=== PATIENT | male | born 1975 | race Caucasian/White ===

== ENCOUNTER 2019-01-18 09:46 | Observation (INO) ==
[2019-01-18] MEDS ORDERED: ASPIRIN CHEW 324 MG PO STA (10:03)
[2019-01-18 10:25] LABS: Basophils # (auto) 0.03 K/uL (0-0.2); Basophils % (auto) 0.3 %; Eosinophils # (auto) 0.09 K/uL (0-0.5); Hematocrit (blood only) 40.5 % (42-52); Hemoglobin 13.1 g/dL (14.0-18.0); Immature Granulocytes # (auto) 0.03 K/uL (0.00-0.02); Immature Granulocytes % (auto) 0.3 %; Lymphocytes # (auto) 2.07 K/uL (1.2-3.4); Mean Corpuscular Hgb Conc 32.3 g/dL (32-36); Mean Corpuscular Volume 75.6 fL (80-100); Mean Platelet Volume 10.6 fL (7.4-10.4); Monocytes # (auto) 0.37 K/uL (0.11-0.59); Monocytes % (auto) 3.9 %; Neutrophils # (auto) 6.83 K/uL (1.4-6.5); Neutrophils % (auto) 72.5 %; Platelet Count 259 K/uL (130-400); RDW Coefficient of Variation 15.8 % (11.5-14.5); RDW Standard Deviation 43.2 fL (36.4-46.3); Red Blood Count 5.36 M/uL (4.7-6.1); White Blood Count 9.42 K/uL (4.8-10.8)
--- NOTE | 2019-01-18 10:26 | Emergency Department Note ---
Entered by Lissett Pulido acting as a scribe for Moe Harris DO History of Present Illness General Chief complaint: Chest Pain Stated complaint: CHEST PAINS - SOB - DIZZY - LIGHT HEADED Source: patient Mode of arrival: ambulatory Limitations: no limitations History of Present Illness Onset (ago): hour(s) (0800) Location: chest (left ) Radiation: extremity (left upper) Severity: similar to prior episodes (CHF) Maximum Pain Intensity: 3 Quality: + aching and + dull Relieved By: + none Exacerbated By: + none Associated symptoms: + chest pain, + diaphoresis and + other (The patient denies pleurisy. The patient denies abdominal pain, back pain, swelling in the leg, and pain in the legs.); no shortness of breath Treatments prior to arrival: none The patient is a 43-year-old male who presented to the emergency department for an evaluation of chest discomfort. The patient describes dull ache which she notices over the left side of the chest. He states it does radiate to the left upper extremity. The pain is still present. The pain started at approximately 8 AM this morning. It occurred while he was riding in a car. He also notices diaphoresis. He denies having any shortness of breath or pleurisy. He is noticed no swelling in the legs or pain in the legs. The patient states that he has had similar symptoms in the past when he had CHF. He states that he does not have a history of stents in his coronary arteries but also states he is never had a cardiac catheterization. He took no pain medications for this. He took no aspirin. He notices no interventions that make this worse or any interventions that make this better. The patient states that he did have a stress test 7 years ago. He denies having any abdominal pain or back pain. Home Medications Home Medications Medication Instructions Recorded Confirmed Type amlodipine 5 mg PO QAM 01/18/19 01/18/19 History empagliflozin [Jardiance] 10 mg PO QAM 01/18/19 01/18/19 History fenofibrate micronized 134 mg PO QAM 01/18/19 01/18/19 History furosemide [Lasix] 60 mg PO QAM 01/18/19 01/18/19 History insulin glargine 45 unit SUBCUT DAILY 01/18/19 01/18/19 History lisinopril 20 mg PO BID 01/18/19 01/18/19 History metoprolol succinate 50 mg PO DAILY 01/18/19 01/18/19 History omega 5-ukc-sfi-fish oil [[place]-3] 3 cap PO BID 01/18/19 01/18/19 History semaglutide [Ozempic] 0.5 mg SUBCUT WK 01/18/19 01/18/19 History sildenafil [Viagra] 100 mg PO DAILY PRN 01/18/19 01/18/19 History simvastatin [Zocor] 10 mg PO QAM 01/18/19 01/18/19 History spironolactone 25 mg PO QAM 01/18/19 01/18/19 History Allergies Allergy/AdvReac Type Severity Reaction Status Date / Time levofloxacin [From Levaquin] AdvReac Severe shortness Unverified 01/18/19 10:45 of breath/whole body swells Past Med/Surg History Medical History CHF (congestive heart failure) No pertinent family history Surgical History No pertinent past surgical history Family History Other No pertinent family history Social History Preferred Language: [place] Communication Ability: Effective Visual Impairment: No Limitations Hearing Ability: Normal 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 and A total of 10 systems reviewed and were otherwise negative Physical Exam Vital Signs Vital Signs - 24 hr 01/18/19 09:51 01/18/19 10:00 01/18/19 10:20 Temperature 36.6 C Temperature Source Oral Sepsis Recent Fever Within 48 Hours No Sepsis New/Unexplained Change in Mental Status No Sepsis Action Taken by Nursing No Action Required Pulse Rate 105 H 100 H Pulse Rate from SpO2 Sensor 101 H Respiratory Rate 26 H 21 Blood Pressure 130/72 163/95 H Blood Pressure Mean 91 117 Pulse Oximetry 100 99 97 Oxygen Delivery Method Room Air Room Air 01/18/19 10:57 01/18/19 11:01 01/18/19 11:31 Temperature Temperature Source Sepsis Recent Fever Within 48 Hours Sepsis New/Unexplained Change in Mental Status Sepsis Action Taken by Nursing Pulse Rate 102 H 101 H 109 H Pulse Rate from SpO2 Sensor 103 H 99 H Respiratory Rate 16 16 14 Blood Pressure 131/83 126/76 149/81 H Blood Pressure Mean 99 92 103 Pulse Oximetry 99 98 98 Oxygen Delivery Method Room Air 01/18/19 12:01 01/18/19 12:31 01/18/19 13:01 Temperature Temperature Source Sepsis Recent Fever Within 48 Hours Sepsis New/Unexplained Change in Mental Status Sepsis Action Taken by Nursing Pulse Rate 117 H 110 H 113 H Pulse Rate from SpO2 Sensor Respiratory Rate 13 15 13 Blood Pressure 147/85 H 136/88 136/84 Blood Pressure Mean 105 104 101 Pulse Oximetry 100 98 97 Oxygen Delivery Method Room Air Room Air Room Air 01/18/19 13:31 01/18/19 14:01 01/18/19 14:31 Temperature Temperature Source Sepsis Recent Fever Within 48 Hours Sepsis New/Unexplained Change in Mental Status Sepsis Action Taken by Nursing Pulse Rate 107 H 115 H 123 H Pulse Rate from SpO2 Sensor Respiratory Rate 23 12 11 L Blood Pressure 122/82 133/82 139/88 Blood Pressure Mean 95 99 105 Pulse Oximetry 98 99 98 Oxygen Delivery Method Room Air Room Air Room Air 01/18/19 15:01 Temperature Temperature Source Sepsis Recent Fever Within 48 Hours Sepsis New/Unexplained Change in Mental Status Sepsis Action Taken by Nursing Pulse Rate 116 H Pulse Rate from SpO2 Sensor Respiratory Rate 12 Blood Pressure 127/79 Blood Pressure Mean 95 Pulse Oximetry 97 Oxygen Delivery Method Room Air GENERAL: Patient is awake, alert, and in no acute distress.Patient is resting comfortably and showing no signs of anxiety EYES: The conjunctivae are clear. The pupils are round and reactive. EARS, NOSE, MOUTH AND THROAT: The nose is without any evidence of any deformity. Mucous membranes are moist.Tongue is midline NECK: The neck is nontender and supple. RESPIRATORY: Normal respiratory effort is noted. There is no evidence of wheezing rhonchi or rales to auscultation. CARDIOVASCULAR: Regular rate and rhythm noted. There no murmurs rubs or gallops normal S1 normal S2 GASTROINTESTINAL: The abdomen is soft. Bowel sounds are present in all quadrants. Abdomen is nontender. MUSCULOSKELETAL/EXTREMITIES: There is no evidence of gross deformity. Full range of motion is noted in the hips and shoulders. SKIN: There is no obvious evidence of any rash. There are no petechiae, pallor or cyanosis noted. NEUROLOGIC: Patient is awake alert and oriented x3. Course 0951: Past medical records reviewed. The patient was evaluated in room A03. A complete history and physical examination was performed. 1200: I have re-evaluated the patient. He states that he is not feeling better. 1430: The patient has a heart score of 4. Callout to hospitalist. 1436: I reviewed the patient's case with Edda Prince PA-C Hospitalist - [facility]. She will evaluate the patient for further management. Administered Medications Discontinued Medications Aspirin (Aspirin) 324 mg PO NOW STA Stop: 01/18/19 10:04 Last Admin: 01/18/19 10:09 Dose: 324 mg Documented by: [id number] Insulin Glargine (Lantus Per Unit) 45 units SC NOW ONE Stop: 01/18/19 16:01 Last Admin: 01/18/19 16:11 Dose: 45 units Documented by: [id number] Cosigned by: [id number] Metoprolol Succinate (Toprol Xl) 50 mg PO NOW STA Stop: 01/18/19 15:45 Last Admin: 01/18/19 15:56 Dose: 50 mg Documented by: [id number] Medical Decision Making Differential Diagnosis Differential diagnoses: Acute coronary syndrome, myocardial infarction, pericarditis, pulmonary embolus, aortic dissection, pneumonia, pneumothorax, musculoskeletal, shingles, esophageal. Medical Records Attestation: I reviewed the patient's medical records. Home Medications Current Medication List: was personally reviewed by me Laboratory Data Attestation: I reviewed the patient's lab results. Result diagrams: 01/18/19 10:15 01/18/19 10:15 Lab Results 01/18/19 01/18/19 01/18/19 Range/Units 10:15 10:15 10:15 WBC 9.42 (4.8-10.8) K/uL RBC 5.36 (4.7-6.1) M/uL Hgb 13.1 L (14.0-18.0) g/dL Hct 40.5 L (42-52) % MCV 75.6 L (80-100) fL MCH 24.4 L (25-34) pg MCHC 32.3 (32-36) g/dL RDW Std Deviation 43.2 (36.4-46.3) fL RDW Coeff of Shreyas 15.8 H (11.5-14.5) % Plt Count 259 (130-400) K/uL MPV 10.6 H (7.4-10.4) fL Immature Gran % (Auto) 0.3 % Neut % (Auto) 72.5 % Lymph % (Auto) 22.0 % [place] % (Auto) 3.9 % Eos % (Auto) 1.0 % Baso % (Auto) 0.3 % Immature Gran # (Auto) 0.03 H (0.00-0.02) K/uL Neut # (Auto) 6.83 H (1.4-6.5) K/uL Lymph # (Auto) 2.07 (1.2-3.4) K/uL [place] # (Auto) 0.37 (0.11-0.59) K/uL Eos # (Auto) 0.09 (0-0.5) K/uL Baso # (Auto) 0.03 (0-0.2) K/uL PT 10.5 (9.0-12.0) Seconds INR 1.0 (0.9-1.1) APTT 25.9 (21.0-31.0) Seconds PTT Ratio 1.0 D-Dimer (0-500) ug/L FEU Sodium 136 (136-145) mmol/L Potassium 4.3 (3.5-5.1) mmol/L Chloride 103 (98-107) mmol/L Carbon Dioxide 25 (21-32) mmol/L Anion Gap 8.0 (3-11) BUN 24 H (7-18) mg/dl Creatinine 1.28 (0.6-1.4) mg/dl Est Cr Clr Drug Dosing 111.6 ml/min Est GFR ( Amer) 77.8 Est GFR (Non-Af Amer) 67.1 BUN/Creatinine Ratio 18.4 (10-20) Glucose 245 H (70-99) mg/dl Calcium 9.7 (8.5-10.1) mg/dl Total Bilirubin 0.5 (0.2-1) mg/dl AST 11 L (15-37) U/L ALT 23 (12-78) U/L Alkaline Phosphatase 60 (45-117) U/L Troponin I < 0.015 (0-0.045) ng/ml Total Protein 8.2 (6.4-8.2) gm/dl Albumin 4.0 (3.4-5.0) gm/dl Globulin 4.2 H (2.5-4.0) gm/dl Albumin/Globulin Ratio 1.0 (0.9-2) Lipase 152 (73-393) U/L 01/18/19 01/18/19 Range/Units 13:10 13:43 WBC (4.8-10.8) K/uL RBC (4.7-6.1) M/uL Hgb (14.0-18.0) g/dL Hct (42-52) % MCV (80-100) fL MCH (25-34) pg MCHC (32-36) g/dL RDW Std Deviation (36.4-46.3) fL RDW Coeff of Shreyas (11.5-14.5) % Plt Count (130-400) K/uL MPV (7.4-10.4) fL Immature Gran % (Auto) % Neut % (Auto) % Lymph % (Auto) % [place] % (Auto) % Eos % (Auto) % Baso % (Auto) % Immature Gran # (Auto) (0.00-0.02) K/uL Neut # (Auto) (1.4-6.5) K/uL Lymph # (Auto) (1.2-3.4) K/uL [place] # (Auto) (0.11-0.59) K/uL Eos # (Auto) (0-0.5) K/uL Baso # (Auto) (0-0.2) K/uL PT (9.0-12.0) Seconds INR (0.9-1.1) APTT (21.0-31.0) Seconds PTT Ratio D-Dimer 310 (0-500) ug/L FEU Sodium (136-145) mmol/L Potassium (3.5-5.1) mmol/L Chloride (98-107) mmol/L Carbon Dioxide (21-32) mmol/L Anion Gap (3-11) BUN (7-18) mg/dl Creatinine (0.6-1.4) mg/dl Est Cr Clr Drug Dosing ml/min Est GFR ( Amer) Est GFR (Non-Af Amer) BUN/Creatinine Ratio (10-20) Glucose (70-99) mg/dl Calcium (8.5-10.1) mg/dl Total Bilirubin (0.2-1) mg/dl AST (15-37) U/L ALT (12-78) U/L Alkaline Phosphatase (45-117) U/L Troponin I < 0.015 (0-0.045) ng/ml Total Protein (6.4-8.2) gm/dl Albumin (3.4-5.0) gm/dl Globulin (2.5-4.0) gm/dl Albumin/Globulin Ratio (0.9-2) Lipase (73-393) U/L Imaging Data Radiologist's Impression: Radiology results as stated below per my review and the radiologist's interpretation: XR chest 1V portable CLINICAL HISTORY: Atypical chest pain COMPARISON STUDY: No previous studies for comparison. FINDINGS: The heart is borderline enlarged. There is no failure. There is no focal pulmonary consolidation. There are no pleural effusions. There is no pneumothorax.[ IMPRESSION: No active disease in the chest. Electronically signed by: Edd Cavanaugh M.D. 01/18/2019 11:05 AM Dictated: 01/18/19 1105 Transcribed: 01/18/19 1105 ECG Data Attestation: I personally reviewed and interpreted this ECG as follows: Indication: chest pain Rate (beats per minute): 97 Rhythm: normal sinus Findings: no ST elevation and no ectopy Comparison ECG Date: no prior available Additional Comments: Second EKG: Sinus tachycardia with a rate of 108. No ectopy. No acute ST segments. Increased rate, otherwise no change from prior. Blood Pressure Blood Pressure Findings: Elevated blood pressure Blood Pressure Disposition: Referred to patients primary care provider MDM Narrative The patient is a 43-year-old male who presented to the emergency department for evaluation of chest pain. The patient describes left-sided chest pain which is a burning sensation. I discussed the patient's laboratory and radiographic studies with him. He was treated with aspirin in the emergency department. I also discussed the limitations of the emergency department work-up for chest pain with him. Given the patient's heart score and comorbidities I do feel that he may require inpatient management and observation as the patient is at higher risk for acute coronary syndrome. I discussed this with the patient and he was agreeable. For this reason I discussed his case with the on-call [facility] hospitalist group. They have agreed to evaluate the patient in the emergency department for further management and disposition. Impression & Plan Chest pain, Sinus tachycardia, Abnormal Heart Score CT Discharge Plan Visit Data Chief Complaint: Chest Pain Stated Complaint: CHEST PAINS - SOB - DIZZY - LIGHT HEADED ED Provider: Moe Harris Discharge Problem: Chest pain, Sinus tachycardia, Abnormal Heart Score CT Patient Disposition: Being Evaluated by Hospitalist Discharge Instructions Interventions: ED Discharge Assessment Last Done: 01/18/19 16:17 Discharge Problem: Chest pain Qualifiers: Chest pain type: unspecified Qualified Code(s): R07.9 - Chest pain, unspecified The scribe's documentation has been prepared under my direction and personally reviewed by me in its entirety. I confirm that the note above accurately reflects all work, treatment, procedures, and medical decision making performed by me.
[2019-01-18 10:38] LABS: Alanine Aminotransferase 23 U/L (12-78); Aspartate Aminotransferase 11 U/L (15-37); BUN Creatinine Ratio 18.4 (10-20); Blood Urea Nitrogen 24 mg/dl (7-18); Calcium 9.7 mg/dl (8.5-10.1); Carbon Dioxide 25 mmol/L (21-32); Chloride 103 mmol/L (98-107); Creatinine Clr Calc Pharmacy 111.6 ml/min; Est GFR (African American) 77.8; Est GFR (Non-African American) 67.1; Glucose 245 mg/dl (70-99); Potassium 4.3 mmol/L (3.5-5.1); Sodium 136 mmol/L (136-145)
[2019-01-18 10:43] LABS: Alkaline Phosphatase 60 U/L (45-117); Bilirubin,Total 0.5 mg/dl (0.2-1); Globulin 4.2 gm/dl (2.5-4.0); Total Protein 8.2 gm/dl (6.4-8.2); Troponin I < 0.015 ng/ml (0-0.045)
[2019-01-18 10:44] LABS: Partial Thromboplastin Time 25.9 Seconds (21.0-31.0); Prothrombin Time 10.5 Seconds (9.0-12.0)
--- NOTE | 2019-01-18 11:06 | XRay Report ---
XR chest 1V portable CLINICAL HISTORY: Atypical chest pain COMPARISON STUDY: No previous studies for comparison. FINDINGS: The heart is borderline enlarged. There is no failure. There is no focal pulmonary consolid ation. There are no pleural effusions. There is no pneumothorax.[ IMPRESSION: No active disease in the chest. Electronically signed by: Edd Cavanaugh M.D. 01/18/2019 11:05 AM
[2019-01-18 14:06] LABS: D Dimer 310 ug/L FEU (0-500)
[2019-01-18] MEDS ORDERED: METOPROLOL SUCC 50MG EXT REL TAB PO STA (15:44)
[2019-01-18] MEDS ORDERED: LANTUS PER UNIT CHARGE SC ONE ×2 (15:45→16:00)
--- NOTE | 2019-01-18 15:55 | History & Physical Report ---
Date of Service January 18, 2019 Assessment & Plan (1) Chest pain: This is a 43-year-old male with a PMH of DM II, chronic systolic heart failure 2/2 nonischemic cardiomyopathy, asthma and HTN who presents with chest pain beginning this morning. -Burning left sided chest pain with associated diaphoresis and pain in his left arm -R/o ACS; risk factors include DM II, HTN, HLD, + family history -EKG with normal sinus rhythm. Initial troponin negative. D-dimer negative. Chest x-ray without any acute abnormalities. -Trend serial cardiac enzymes -2D echo from Jun 2018 with EF of 34%, underlying non-ischemic CM since 2005 -Repeat EKG in am -Routine cardiology consult (2) Sinus tachycardia: In setting of anxiety, missed beta-charito dose this morning -HR 91 after Toprol (3) Type 2 diabetes mellitus: A1c of 9.01 September 2018, repeat ordered -Hold home agents -Given missed Lantus dose of 45 U upon arrival -SSI while in-patient -Resume Lantus tomorrow -BSG AC HS (4) Chronic systolic heart failure: In setting of nonischemic cardiomyopathy since 2005 -June 2018 resting echo with EF of 34% -Continue Lasix, lisinopril, Toprol, spironolactone (5) Hypertension: Normotensive -Continue amlodipine, lisinopril, Toprol (6) Hyperlipidemia: Continue statin DVT Ppx: SQ Lovenox Code status: FULL PCP: Jozef (Jorje) Dispo: Observation telemetry. Plan to return home once medically stable. Patient seen in collaboration with Dr. Frederick. Please see addendum. History of Present Illness Chief Complaint: Chest pain Primary Care Provider: NO PCP This is a 43-year-old male with a PMH of DM II, chronic systolic heart failure 2/2 nonischemic cardiomyopathy, asthma and HTN who presents with chest pain beginning this morning. Patient is in town with his parents running errands and developed left-sided chest pain in the car on the way here this morning described as dull, with some associated joint pain in left arm. Went to OP and started to feel worse but was able to tolerate coffee and toast. Continue to have the left-sided pain, so was brought to ED for further evaluation. In the ED, patient found to be normotensive but tachycardic at 107. Having mild burning pain in left chest. Does have underlying nonischemic cardiomyopathy with EF of 34% on June 2018 echocardiogram. 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 Did not take any medications this morning. No personal history of co ronary artery disease but has family history in his grandparents. Did have an exercise stress test in 2012 that was reportedly normal. EKG with normal sinus rhythm. No acute ischemic findings. Initial troponin negative. D-dimer negative. Chest x-ray without any acute abnormalities. Will observe on telemetry for chest pain rule out. Denies any fever, chills, lightheadedness, headache, palpitations, shortness of breath, nausea, vomiting, abdominal pain, dysuria, diarrhea or constipation. Allergies Allergy/AdvReac Type Severity Reaction Status Date / Time levofloxacin [From Levaquin] AdvReac Severe shortness Unverified 01/18/19 10:45 of breath/whole body swells Home Medications Home Medications Medication Instructions Recorded Confirmed Type amlodipine 5 mg PO QAM 01/18/19 01/18/19 History empagliflozin [Jardiance] 10 mg PO QAM 01/18/19 01/18/19 History fenofibrate micronized 134 mg PO QAM 01/18/19 01/18/19 History furosemide [Lasix] 60 mg PO QAM 01/18/19 01/18/19 History insulin glargine 45 unit SUBCUT DAILY 01/18/19 01/18/19 History lisinopril 20 mg PO BID 01/18/19 01/18/19 History metoprolol succinate 50 mg PO DAILY 01/18/19 01/18/19 History omega 7-prf-fpl-fish oil [[place]-3] 3 cap PO BID 01/18/19 01/18/19 History semaglutide [Ozempic] 0.5 mg SUBCUT WK 01/18/19 01/18/19 History sildenafil [Viagra] 100 mg PO DAILY PRN 01/18/19 01/18/19 History simvastatin [Zocor] 20 mg PO HS 01/18/19 01/18/19 History spironolactone 25 mg PO QAM 01/18/19 01/18/19 History Past Med/Surg History Medical History Hypertension (Chronic) Chronic systolic heart failure (Chronic) Nonischemic cardiomyopathy (Chronic) Asthma (Chronic) Hyperlipidemia (Chronic) Type 2 diabetes mellitus (Chronic) Iron deficiency anemia (Chronic) Surgical History No pertinent past surgical history (Chronic) Family History Other Heart disease Hypertension Social History Preferred Language: Pashto Communication Ability: Effective Visual Impairment: No Limitations 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 Physical Exam Physical Exam: General Appearance: WD/WN, no apparent distress, morbidly obese Head: normocephalic, atraumatic Eyes: normal inspection, PERRL, EOMI ENT: hearing grossly normal, pharynx normal (moist mucous membranes) Neck: supple, no JVD, no adenopathy Respiratory/Chest: No chest wall tenderness, lungs clear to auscultation. No wheezes, rales or rhonci. No respiratory distress or accessory muscle use Cardiovascular: regular rate, rhythm, no murmur, normal peripheral pulses, no BLE edema Abdomen/GI: normal bowel sounds, soft, non-tender to palpation Extremities/Musculoskelatal: normal inspection, no calf tenderness, normal capillary refill Neurologic/Psych: alert, normal mood/affect, oriented x 3 Skin: normal color, warm/dry Results & Data Vital Signs (Past 12 Hours) Vital Signs Temp Pulse Resp BP Pulse Ox 01/18/19 15:01 116 H 12 127/79 97 01/18/19 14:31 123 H 11 L 139/88 98 01/18/19 14:01 115 H 12 133/82 99 01/18/19 13:31 107 H 23 122/82 98 01/18/19 13:01 113 H 13 136/84 97 01/18/19 12:31 110 H 15 136/88 98 07/20/19 12:01 117 H 13 147/85 H 100 01/18/19 11:31 109 H 14 149/81 H 98 01/18/19 11:01 101 H 16 126/76 98 01/18/19 10:57 102 H 16 131/83 99 01/18/19 10:20 97 01/18/19 10:00 100 H 21 163/95 H 99 01/18/19 09:51 36.6 C 105 H 26 H 130/72 100 Laboratory Results Short CBC 01/18/19 Range/Units 10:15 WBC 9.42 (4.8-10.8) K/uL Hgb 13.1 L (14.0-18.0) g/dL Hct 40.5 L (42-52) % Plt Count 259 (130-400) K/uL BMP 01/18/19 10:15 Sodium 136 Potassium 4.3 Chloride 103 Carbon Dioxide 25 BUN 24 H Creatinine 1.28 Glucose 245 H Calcium 9.7 Cardiac Enzymes 01/18/19 01/18/19 Range/Units 10:15 13:10 Troponin I < 0.015 < 0.015 (0-0.045) ng/ml Liver Function 01/18/19 Range/Units 10:15 Total Bilirubin 0.5 (0.2-1) mg/dl AST 11 L (15-37) U/L ALT 23 (12-78) U/L Alkaline Phosphatase 60 (45-117) U/L Albumin 4.0 (3.4-5.0) gm/dl Diagnostic Findings CXR: IMPRESSION: No active disease in the chest. ECG Rhythm: normal sinus Supervising Physician Co-Signing Physician Notes I have seen and examined the patient and have discussed the case with the provider above. I agree with the assessment and plan as stated with the following exceptions. Mr. Griggs is a 43-year-old uncontrolled diabetic with a history of idiopathic cardia myopathy since 2005. He reports a sudden onset of chest discomfort that is described as a burning pain in his left anterior chest wall with associated diaphoresis and pain in his left arm. He has multiple risk factors for cardiac disease including obesity, diabetes, hypertension. Initial work-up is negative including nonischemic EKG, negative troponin x2, chest pain negative. On physical exam vital signs are stable and he is afebrile and mentating at baseline. He states that he has a burning pain in his chest that was initially improved with aspirin given in the ER but now is intermittently coming and going. Physical exam reveals S1-S2 heard without evidence of murmurs, gallops or rubs. Lungs are clear to auscultation abdomen is soft. He appears euvolemic. We will plan to give Pepcid 20 mg IV and GI cocktail at this time. Continue trending serial troponins overnight and monitor on telemetry. Continue chest pain control efforts. Appreciate Cardiology recommendations. DO Otoniel (1) Chest pain Chest pain type: unspecified Qualified Code(s): R07.9 - Chest pain, unspecified
[2019-01-18] MEDS ORDERED: ALUMINUM/MAGNESIUM SUSP 30 ML UDC PO PRN (16:38)
[2019-01-18] MEDS ORDERED: DEXTROSE 50% 50 ML SYRINGE IV PRN (16:38)
[2019-01-18] MEDS ORDERED: CARBOHYDRATES FOR HYPOGLYCEMIA PO PRN (16:38)
[2019-01-18] MEDS ORDERED: POLYETHYLENE (MIRALAX) 17 GM PACK PO PRN (16:38)
[2019-01-18] MEDS ORDERED: GLUCAGON FOR INJ 1 MG VIAL SQ PRN (16:38)
[2019-01-18] MEDS ORDERED: ACETAMINOPHEN 325 MG TAB PO PRN (16:38)
[2019-01-18] MEDS ORDERED: GLUCOSE 10 TABS/TUBE PO PRN (16:38)
[2019-01-18] MEDS ORDERED: ONDANSETRON INJ 2 MG/ML 2 ML VIAL IV PRN (16:38)
[2019-01-18] MEDS ORDERED: NITROGLYCERIN SL 0.4 MG/TAB TAB SL PRN (16:38)
[2019-01-18] MEDS ORDERED: GLUCOSE 40% GEL 15 GM TUBE PO PRN (16:38)
[2019-01-18] MEDS ORDERED: FAMOTIDINE 20MG/5ML IV PUSH IV STA (16:54)
[2019-01-18] MEDS ORDERED: ENOXAPARIN INJ 40 MG/0.4 ML SYR SQ SCH (17:30)
[2019-01-18] MEDS ORDERED: ALUMINUM/MAGNESIUM SUSP 18 ML, LIDOCAINE HCL VISCOUS 2% 6 ML, BARCODE IDENTIFIER 1 EA PO ONE (17:30)
[2019-01-18] MEDS ORDERED: FAMOTIDINE 20 MG in SYRINGE 3 ML IV ONE (17:30)
[2019-01-18] MEDS: INSULIN ASPART 100 UNITS/ML 3 ML PEN SC SCH ×2 (18:38→20:50)
[2019-01-18] MEDS: INSULIN GLARGINE SOLOSTAR 100 UNITS/ML 3 ML PEN SC SCH (20:48)
[2019-01-18] MEDS: LISINOPRIL 20 MG TAB PO SCH (20:50)
[2019-01-18] MEDS ORDERED: SIMVASTATIN 20 MG TAB PO SCH (21:00)
[2019-01-19 07:09] LABS: Hematocrit (blood only) 39.8 % (42-52); Hemoglobin 12.7 g/dL (14.0-18.0); Mean Corpuscular Hgb Conc 31.9 g/dL (32-36); Mean Platelet Volume 10.7 fL (7.4-10.4); Platelet Count 258 K/uL (130-400); RDW Coefficient of Variation 15.9 % (11.5-14.5); RDW Standard Deviation 45.5 fL (36.4-46.3); White Blood Count 10.45 K/uL (4.8-10.8)
[2019-01-19 07:40] LABS: BUN Creatinine Ratio 17.9 (10-20); Calcium 9.1 mg/dl (8.5-10.1); Creatinine Clr Calc Pharmacy 130.2 ml/min; Est GFR (African American) 95.6; Est GFR (Non-African American) 82.5; Potassium 4.4 mmol/L (3.5-5.1)
[2019-01-19] MEDS: LISINOPRIL 20 MG TAB PO SCH (08:10)
[2019-01-19] MEDS: INSULIN GLARGINE SOLOSTAR 100 UNITS/ML 3 ML PEN SC SCH (08:12)
[2019-01-19] MEDS: INSULIN ASPART 100 UNITS/ML 3 ML PEN SC SCH (08:13)
[2019-01-19] MEDS ORDERED: METOPROLOL SUCC 50MG EXT REL TAB PO SCH (09:00)
[2019-01-19] MEDS ORDERED: FENOFIBRATE NANOCRYSTALLIZED 145 MG TABLET PO SCH (09:00)
[2019-01-19] MEDS ORDERED: FUROSEMIDE 40 MG TAB PO SCH (09:00)
[2019-01-19] MEDS ORDERED: AMLODIPINE BESYLATE 5 MG TAB PO SCH (09:00)
[2019-01-19] MEDS ORDERED: SIMVASTATIN 10 MG TAB PO SCH (09:00)
[2019-01-19] MEDS ORDERED: SPIRONOLACTONE 25 MG TAB PO SCH (09:00)
[2019-01-19] MEDS ORDERED: ASPIRIN 81 MG ECTAB PO SCH (09:00)
[2019-01-19] MEDS ORDERED: INSULIN GLARGINE SOLOSTAR 100 UNITS/ML 3 ML PEN SC SCH (09:00)
--- NOTE | 2019-01-19 12:10 | Discharge Summary ---
Date of Service January 19, 2019 Admission HPI Per Admitting Provider This is a 43-year-old male with a PMH of DM II, chronic systolic heart failure 2/2 nonischemic cardiomyopathy, asthma and HTN who presents with chest pain beginning this morning. Patient is in town with his parents running errands and developed left-sided chest pain in the car on the way here this morning described as dull, with some associated joint pain in left arm. Went to [facility] and started to feel worse but was able to tolerate coffee and toast. Continue to have the left-sided pain, so was brought to ED for further evaluation. In the ED, patient found to be normotensive but tachycardic at 107. Having mild burning pain in left chest. Does have underlying nonischemic cardiomyopathy with EF of 34% on June 2018 echocardiogram. 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 Did not take any medications this morning. No personal history of coronary artery disease but has family history in his grandparents. Did have an exercise stress test in 2012 that was reportedly normal. EKG with normal sinus rhythm. No acute ischemic findings. Initial troponin negative. D-dimer negative. Chest x-ray without any acute abnormalities. Will observe on telemetry for chest pain rule out. Denies any fever, chills, lightheadedness, headache, palpitations, shortness of breath, nausea, vomiting, abdominal pain, dysuria, diarrhea or constipation. Admission Exam Per Admitting Provider General Appearance: WD/WN, no apparent distress, morbidly obese Head: normocephalic, atraumatic Eyes: normal inspection, PERRL, EOMI ENT: hearing grossly normal, pharynx normal (moist mucous membranes) Neck: supple, no JVD, no adenopathy Respiratory/Chest: No chest wall tenderness, lungs clear to auscultation. No wheezes, rales or rhonci. No respiratory distress or accessory muscle use Cardiovascular: regular rate, rhythm, no murmur, normal peripheral pulses, no BLE edema Abdomen/GI: normal bowel sounds, soft, non-tender to palpation Extremities/Musculoskelatal: normal inspection, no calf tenderness, normal capillary refill Neurologic/Psych: alert, normal mood/affect, oriented x 3 Skin: normal color, warm/dry Principal Diagnosis Atypical chest pain Acid reflux Discharge Data Allergies Allergy/AdvReac Type Severity Reaction Status Date / Time levofloxacin [From Levaquin] AdvReac Severe shortness Unverified 01/18/19 10:45 of breath/whole body swells Consultations 01/18/19 14:37 ED Decision to Admit Stat 01/19/19 08:00 Consult Cardiology Routine Hospital Course (1) Chest pain: (2) Sinus tachycardia: (3) Type 2 diabetes mellitus: (4) Chronic systolic heart failure: (5) Hypertension: (6) Hyperlipidemia: 43-year-old man with multiple risk factors for CAD including diabetes, hypertension, obesity in the setting of known chronic systolic heart failure secondary to nonischemic cardiomyopathy presented with acute chest pain. Serial troponin enzymes were drawn and negative. EKG was consistent with normal sinus rhythm and no evidence of ischemia. He was admitted to telemetry and monitored overnight. After aspirin was administered in the ER the patient had a resolution of chest pain which returned when he arrived on the floor. He was given Pepcid and a GI cocktail which resolved the pain completely, and it did not return throughout the rest of the admission. Telemetry was reviewed and was without event throughout his entire admission. He remained hemodynamically stable throughout his admission. A 2D echo from June 2008 revealed an EF of 34% and this was consistent with prior echocardiograms. With a normal enzyme, normal EKG and normal chest x-ray a repeat echo did not seem warranted. At time of discharge a [id number] examination was performed revealing an obese man in no acute distress with a normal heart exam, no JVD, no peripheral edema who has been chest pain-free since administration of GI cocktail with prior evening. He was considered stable for discharge with close primary care follow-up recommended for outpatient stress test within 3 to 5 days. He was also instructed to follow-up with his line assembly utility worker with whom he has establish care. His chest pain was consistent with referred pain from acid reflux and he was started on Protonix daily with ranitidine for breakthrough acid reflux at time of discharge. Total Time Total Time Spent Total Time Spent (In Minutes): 60 Total Time Includes: Examination of the Patient, Discharge Planning, Medication Reconciliation, Communication With Other Providers and Other (sending discharge paperwork to PCP office outside of area. ) Discharge Plan Discharge Items Patient Disposition: Home - Self-Care Reason For Visit: CHEST PAIN Discharge Diagnosis: Atypical chest pain Condition: Good Discharge Goals: Diagnostic testing Activity: Resume your previous activity Non-emergency contact: Primary Care Provider and Funeral Prearrangement Counselor Call non-emergency contact if: you have any medication questions, your symptoms worsen, your pain is not controlled, your pain is worsening, your pain is unusual for you, your pain is concerning for you and you have a fever Follow-up/Referrals: PCP,NO [Primary Care Provider] - Diet: Heart Healthy Addtl Provider Instructions: Please take all medications as instructed on discharge list below. NEW MEDICATIONS: 1. Protonix-this is a medication to treat acid reflux that should be taken on a daily basis regardless of symptoms. 2. Ranitidine-this is an acid reflux medicine that should be taken up to twice daily only as needed for breakthrough heartburn symptoms. It is recommended that you follow-up with your primary care doctor within 1 week of discharge from the hospital. It is strongly recommended that you undergo a cardiac stress test within 72 hours. Please contact your line assembly utility worker or primary care physician to set this up. It was a pleasure taking care of you! Please call if you have any questions or problems. You can reach a [facility] hospitalist on duty at [facility] 24 hours a day by calling [phone]. Take care of yourself. Yvonne Frederick, DO [facility] Prescriptions: New pantoprazole [Protonix] 40 mg tablet,delayed release (DR/EC) 40 mg PO DAILY Qty: 30 RF: 1 ranitidine HCl [Zantac] 150 mg tablet 150 mg PO BID PRN (Reason: breakthrough heartburn) Qty: 60 RF: 1 Continued spironolactone 25 mg Tablet 25 mg PO QAM RF: 0 Jardiance 10 mg tablet 10 mg PO QAM RF: 0 Hendricks-3 350 mg-235 mg- 90 mg-597 mg Capsule,Delayed Release(Dr/Ec) 3 cap PO BID RF: 0 Ozempic 0.25 mg or 0.5 mg(2 mg/1.5 mL) pen injector 0.5 mg subcut WK RF: 0 furosemide [Lasix] 40 mg Tablet 60 mg PO QAM RF: 0 lisinopril 20 mg Tablet 20 mg PO BID RF: 0 amlodipine 5 mg Tablet 5 mg PO QAM RF: 0 sildenafil [Viagra] 100 mg Tablet 100 mg PO DAILY PRN (Reason: Erectile Dysfunction) RF: 0 fenofibrate micronized 134 mg Capsule 134 mg PO QAM RF: 0 insulin glargine 100 unit/mL Solution 45 unit SUBCUT DAILY RF: 0 metoprolol succinate 50 mg Tablet Extended Release 24 Hr 50 mg PO DAILY RF: 0 rosuvastatin 20 mg Tablet 20 mg PO DAILY RF: 0 Stand-Alone Forms: Call Back Authorization, [facility], Work/School Release (Inpt) Discharge Orders: Discharge Order (Routine); Ordered 01/19/19 Ordered By: Yvonne Frederick Admission Data Admit Date/Time: 01/18/19 15:44 Attending Provider: Yvonne Frederick Admit Provider: Yvonne Frederick Primary Care Provider: PCP,NO Other Providers: Annamaria Higginbotham Service: Telemetry Other Interventions: Discharge Summary Assessment (RN) Last Done: 01/19/19 12:13 DC Date/Time DO NOT enter until pt leaves facility: 01/19/19 12:38
[2019-01-20 06:27] LABS: Estimated Average Glucose 180 mg/dl; Hemoglobin A1C 7.9 % (4.5-5.6)
== END 2019-01-19 12:38 | disposition home or self-care (01) ==
LOC: 2S 09:46 → ED 09:46 → 2S 16:17